=== PATIENT | male | born 1960 | race Hispanic/Latino ===

== ENCOUNTER 2018-01-08 11:39 | Emergency (ER) | payer OTHER ==
--- NOTE | 2018-01-08 14:39 | ER ---
Nurse's Notes [facility] Name: Destini Koenig Age: 57 yrs Sex: Male : 1960 Arrival Date: 01/08/2018 Time: 11:45 Bed Waiting Private MD: Diagnosis: Presentation: 01/08 13:19 Presenting complaint: Patient states: abdominal pain x 2 days. 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 Sometimes feels abdomen is distended. denies n/v/d, black tarry stool or vomiting blood. 13:19 Acuity: CARMEN 3 dm5 Triage Assessment: 13:21 General: Appears in no apparent distress. Behavior is calm, cooperative. Pain: dm5 Complains of pain in abdomen Pain currently is 7 out of 10 on a pain scale. GI: Patient currently denies bloody stool, diarrhea, nausea, vomiting. Historical: - Allergies: 13:21 No Known Allergies; dm5 Vital Signs: 13:21 BP 162 / 86; Pulse 82; Resp 18; Temp 98.8; Pulse Ox 99% on R/A; Weight 72.57 kg (R); dm5 Height 5 ft. 6 in. (167.64 cm); Pain 7/10; 13:21 Body Mass Index 25.82 (72.57 kg, 167.64 cm) dm5 ED Course: 11:45 Patient arrived in ED. mr 13:21 Triage completed. dm5 13:21 Arm band placed on Patient placed in waiting room. dm5 14:26 Patient's name was called from ER lobby. No response. dm5 14:32 Patient's name was called from ER lobby. No response. aj 14:38 Hernan Lowery MD is Attending Physician. aj 14:38 Patient's name was called from ER lobby. No response. aj Administered Medications: No medications were administered Outcome: 14:38 Eloped from waiting room, before seeing physician Time discovered patient gone: aj January 08, 2018 at 14:38 14:38 Patient left the ED. deloris Signatures: Merna Nunez, RN RN Cheri Garcia RN RN Maegan Echevarria mr
== END 2018-01-08 14:38 | disposition left against medical advice (07) ==
LOC: ER 11:39
DX: Z53.21 Procedure and treatment not carried out due to patient leaving prior to being seen by health care provider (principal)
CPT/HCPCS: 99281